=== PATIENT | male | born 1955 | race Caucasian/White ===

== ENCOUNTER → 2017-08-23 | Outpatient (CLI) | payer BC ==
--- NOTE | 2017-08-23 14:59 | DIAGNOSTIC IMAGING REPORT ---
R HAND MIN 3 VIEWS ROUTINE CLINICAL HISTORY: Bilateral hand pain. Symmetrical polyarthritis. Anticardiolipin antibody positive. COMPARISON: None FINDINGS: Alignment of the right hand is anatomic. No fracture or osseous lesion is identified. Carpal bones are intact. There is mild to moderate joint space narrowing within multiple articulations of the right hand, most evident within the distal interphalangeal joints of the second and third digits. No erosions are identified by radiography. IMPRESSION: 1. 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 2. No radiographic evidence of an erosive/inflammatory arthropathy. Electronically signed by: Mike Villanueva M.D. 08/23/2017 2:58 PM Dictated Date/Time: 08/23/2017 2:56 PM
--- NOTE | 2017-08-23 15:06 | DIAGNOSTIC IMAGING REPORT ---
L HAND MIN 3 VIEWS ROUTINE CLINICAL HISTORY: 62 years-old Male presenting with ANTI-CARDIOLPIN ANITBODY POSITIVE, HISTORY OF BLOOD CLOTS, bilateral hand pain, pain in the third and fourth digits. TECHNIQUE: Frontal, oblique, and lateral views of the left hand were obtained. COMPARISON: Correlation made to plain radiographs of the right hand performed the same day. FINDINGS: No acute fracture or malalignment. Focal subchondral cystic change suggested along the head of the middle phalanx of the second finger. Osteophytosis also noted at the distal interphalangeal joints of the second and third finger. No significant joint space loss. Milder degenerative change noted at the proximal interphalangeal joint of the second and third finger. No evidence of erosions. No radiographic soft tissue abnormality. IMPRESSION: Findings most characteristic of osteoarthritis at the proximal and distal interphalangeal joints of the second and third fingers. Electronically signed by: Evin Dexter M.D. 08/23/2017 3:05 PM Dictated Date/Time: 08/23/2017 2:57 PM
== END | disposition home or self-care (01) ==
LOC: C.RAD1850 14:36
PROVIDERS: ATTEND Internal Medicine Rheumatology
DX: R76.8 Other specified abnormal immunological findings in serum (principal); Z86.718 Personal history of other venous thrombosis and embolism; M79.1 Myalgia; M19.041 Primary osteoarthritis, right hand